=== PATIENT | female | born 1975 | race Caucasian/White ===

== ENCOUNTER 2016-09-22 10:56 | Emergency (ER) | payer MEDICAID ==
[~2016-09-22] VITALS: Wt 110.0 kg
[2016-09-22] MEDS ORDERED: ONDANSETRON (ODT) 4 MG TAB ODT STA (12:20)
[2016-09-22] MEDS ORDERED: HYDROCODONE/APAP (7.5/325) TAB PO ONE (12:30)
[2016-09-22 12:35] LABS: URINE BLOOD (Dip) POC 2+ (NEGATIVE)
[2016-09-22] MEDS ORDERED: HYDROCODONE/APAP (5/325) TAB PO ONE (13:00)
[2016-09-22] MEDS ORDERED: NAPR-260 PO (13:04)
[2016-09-22] MEDS ORDERED: TRAM50TA2 PO (13:04)
[2016-09-22 13:15] VITALS: BP 139/72; PULSE 79; RESP 18; TEMP 98
--- NOTE | 2016-09-22 16:10 | ERD ---
ER Documentation Chief Complaint Date/Time DATE: 09/22/16 TIME: 16:05 Chief Complaint HEADACHE X 4 DAYS HPI This patient is a 41-year-old female with past medical history of migraines presenting to the emergency department for left-sided headache ongoing constantly for the past 4 days. The patient also reports intermittent chills. The patient did see her PCP for this problem and was prescribed Tylenol and Motrin with no relief. She states the pain is a pressure sensation. She denies any urinary symptoms, neck pain, fevers, vision changes, dizziness, back pain, syncope, and other symptoms at this time. ROS All systems reviewed and are negative except as per history of present illness. Medications Home Meds Active Scripts Tramadol HCl (Tramadol HCl) 50 Mg Tablet, 50 MG PO Q4 Y for PAIN, #20 TAB Prov:KELLY VALENCIA PA-C 09/22/16 Naproxen* (Naprosyn*) 500 Mg Tablet, 500 MG PO BID Y for PAIN AND/OR INFLAMMATION, #30 TAB Prov:KELLY VALENCIA PA-C 09/22/16 Allergies Allergies: Coded Allergies: No Known Allergy (Unverified , 09/22/16) PMhx/Soc Medical and Surgical Hx: pt denies Medical Hx, pt denies Surgical Hx History of Surgery: Yes (L ankle ) Anesthesia Reaction: No Hx Neurological Disorder: No Hx Respiratory Disorders: No Hx Cardiac Disorders: No Hx Psychiatric Problems: No Hx Miscellaneous Medical Probl: No Hx Alcohol Use: No Hx Substance Use: No Hx Tobacco Use: No Smoking Status: Never smoker FmHx Noncontributory for chief complaint Physical Exam Vitals Vital Signs Date Time Temp Pulse Resp B/P Pulse Ox O2 Delivery O2 Flow Rate FiO2 09/22/16 13:15 98.0 79 18 139/72 99 Room Air 09/22/16 11:05 98.0 79 18 142/70 99 Physical Exam INITIAL VITAL SIGNS: Reviewed by me. GENERAL: Alert and interactive. No acute distress. HEAD: Head is normocephalic and atraumatic. EYES: EOMI. No scleral icterus. No conjunctival injection. ENT: Moist mucosa. NECK: Supple. Full range of motion. RESPIRATORY: Normal respiratory effort. Clear breath sounds bilaterally. No wheezing, rales, or rhonchi. CV: Regular rate and rhythm. Normal S1 S2. No S3 or S4. No murmurs. ABDOMEN: Soft, non-distended, non-tender. No guarding. No rebound. No masses. EXTREMITIES: No deformity. SKIN: Warm and dry. NEUROLOGIC: Alert and oriented x 4. Speech is normal. Moves all extremities equally. No motor or sensory deficits noted. Negative Romberg test. Negative pronator drift. Cranial nerves are intact. 2+ reflexes to bilateral lower extremities. Sensation is intact. Results 24 hrs Laboratory Tests Test 09/22/16 12:37 Bedside Urine Blood 2+ Bedside Urine Glucose (UA) Negative Bedside Urine Ketones (LAB) Negative Bedside Urine Leukocyte Esterase (L Negative Bedside Urine Nitrite (LAB) Negative Bedside Urine Protein (LAB) 1+ Bedside Urine pH (LAB) 6.5 Current Medications Medications (Trade) Dose Ordered Sig/Derick Route PRN Reason Start Time Stop Time Status Last Admin Dose Admin Ondansetron HCl (Zofran Odt) 4 mg ONCE STAT ODT 09/22/16 12:20 09/22/16 12:21 DC 09/22/16 12:31 Acetaminophen/ Hydrocodone Bitart (Fitzwilliam (7.5-325)) 1 tab ONCE ONCE PO 09/22/16 12:30 09/22/16 12:35 DC Acetaminophen/ Hydrocodone Bitart (Fitzwilliam (5/325)) 1 tab ONCE ONCE PO 09/22/16 13:00 09/22/16 13:01 DC 09/22/16 12:38 Procedures/MDM 41-year-old female presents to the department secondary to complaints of migraine-like symptoms. On physical examination the patient's vitals are within normal limits. The patient has a negative neurological exam. I do not feel that imaging studies are required at this time. Urinalysis in the department was negative for urinary tract infection. The patient was treated with p.o. Zofran and p.o. Fitzwilliam and was feeling much improved in the department. At this time I have very low suspicion for TIA, CVA, status migrainous, intra-cranial hemorrhage, or other emergent conditions. The patient is stable for outpatient management with prescriptions for tramadol and naproxen and she understands and agrees with her diagnosis plan. The patient was advised to return to the department immediately with any new or worsening symptoms. The patient demonstrates understanding of this information. All questions and concerns were addressed and the patient was hemodynamically stable prior to discharge. Departure Diagnosis: Primary Impression: Migraine Condition: Fair Patient Instructions: Headache, Migraine (Classical) Referrals: [facility] YOU HAVE RECEIVED A MEDICAL SCREENING EXAM AND THE RESULTS INDICATE THAT YOU DO NOT HAVE A CONDITION THAT REQUIRES URGENT TREATMENT IN THE EMERGENCY DEPARTMENT. FURTHER EVALUATION AND TREATMENT OF YOUR CONDITION CAN WAIT UNTIL YOU ARE SEEN IN YOUR DOCTORS OFFICE WITHIN THE NEXT 1-2 DAYS. IT IS YOUR RESPONSIBILITY TO MAKE AN APPOINTMENT FOR FOLOW-UP CARE. IF YOU HAVE A PRIMARY DOCTOR --you should call your primary doctor and schedule an appointment IF YOU DO NOT HAVE A PRIMARY DOCTOR YOU CAN CALL OUR PHYSICIAN REFERRAL HOTLINE AT IF YOU CAN NOT AFFORD TO SEE A PHYSICIAN YOU CAN CHOSE FROM THE FOLLOWING [facility] [address] [facility]. [facility] [address] [facility] [facility] [address] [facility] [address] [facility]. [facility] [address] [facility]. [facility] [address] Additional Instructions: Follow-up with your primary care physician within 1 week. Return to the emergency department immediately should you have any new or worsening symptoms, uncontrolled fevers, or other unexplained symptoms. Take all medications as directed. KELLY VALENCIA PA-C Sep 22, 2016 16:10
== END 2016-09-22 13:20 | disposition home or self-care (01) ==
LOC: FTE 10:56
DX: G43.909 Migraine, unspecified, not intractable, without status migrainosus (principal)
CPT/HCPCS: 81003; Z7502; Z7610; 99283

== ENCOUNTER 2016-10-21 10:41 | Emergency (ER) | payer OTHER ==
[~2016-10-21] VITALS: Wt 106.0 kg
[~2016-10-21 10:41] MED LIST: NAPR-260 PO; TRAM50TA2 PO
[2016-10-21] MEDS ORDERED: MED4DP PO (11:19)
[2016-10-21] MEDS ORDERED: NAPR-260 PO (11:19)
--- NOTE | 2016-10-21 17:18 | ERD ---
DATE OF SERVICE: HISTORY OF PRESENT ILLNESS: The patient is a 41-year-old female complaining of right arm numbness f or a week. Patient states that she has some mild neck pain. She has been lifting her daughter over the last few weeks and she feels that she has irritated her neck. She feels it is a numbness and s ometimes burning sensation down her arm. She has taken Motrin with no alleviation of symptoms. Den ies any other medical problems. Denies chest pain, no shortness of breath, no fevers, no traumatic i njuries. MEDICAL HISTORY: Denies. ALLERGIES TO MEDICATIONS: DENIES. SURGICAL HISTORY: Ortho surgery. SOCIAL HISTORY: Denies. REVIEW OF SYSTEMS: A 12-point review of systems was done. Refer to HPI for positives, all other sy stems negative. PHYSICAL EXAMINATION: VITAL SIGNS: Temperature is 98, pulse 72, blood pressure 131/78, respiratory 18, O2 saturation 98% on room air. Pain intensity is 0/10. GENERAL: The patient is well-appearing, well-nourished, no acute distress. HEENT: Atraumatic. Conjunctivae are pink. Pupils equal, round, and reactive to light. There is no s cleral icterus. Tympanic membranes clear bilaterally. Oropharynx clear. No nystagmus or photophobia . CHEST: Clear to auscultation bilaterally. There are no rales, wheezes or rhonchi. HEART: Regular rate and rhythm. No murmurs, clicks, rubs or gallops. No S3 or S4. EXTREMITIES: Equal pulses bilaterally. There is no peripheral clubbing, cyanosis or edema. No focal swelling or erythema. Full range of motion. Grossly neurovascularly intact. NEURO: Alert and oriented. Cranial nerves 2-12 intact. Motor strength in all 4 extremities with 5/5 strength. Sensation grossly intact. Normal speech and gait. Babinski negative. DTR 2+ throughout. SKIN: There is no apparent rash or petechia. The skin is warm and dry. DIAGNOSIS: Paresthesias. MEDICAL DECISION MAKING: I feel the patient likely has nerve irritation coming from her cervical sp ine. I have low suspicion for nerve deficit or vascular deficits at this time. Patient's exam is n onconcerning. I have low suspicion for cardiac abnormality or pulmonary abnormality. The patient w ill be given medication for symptoms and recommended to rest the arm and to refrain from lifting/con tinue to lift daughter. DISCHARGE: Patient is discharged stable. Patient is given prescription for Medrol Dosepak and napr oxen and told to follow up with primary care within 1 to 2 days. The patient was told if symptoms c hange or worsen, to return to the ER. All other questions answered at time of discharge. Discharge summary given at the time of departure. Patient understood and complied with plan. Dictated By: TAWNY SADLER for MARCO CAREY/TAMMY Conf#: [id number] DID#: [id number]
== END 2016-10-21 11:30 | disposition home or self-care (01) ==
LOC: FTE 10:41
DX: R20.2 Paresthesia of skin (principal)
CPT/HCPCS: 99283